=== PATIENT | male | born 1975 | race Two or more races ===

== ENCOUNTER 2020-11-11 12:44 | Emergency (ER) | payer OTHER ==
[~2020-11-11] VITALS: Ht 182.9 cm; Wt 88.5 kg
[2020-11-11] MEDS ORDERED: KETO10TA2 PO (15:31)
[2020-11-11] MEDS ORDERED: CIPRO500 MG PO (15:31)
== END 2020-11-11 16:30 | disposition home or self-care (01) ==
LOC: ER 12:44
DX: S51.851A Open bite of right forearm, initial encounter (principal); W54.0XXA Bitten by dog, initial encounter; Y93.89 Activity, other specified; Y92.89 Other specified places as the place of occurrence of the external cause; Y99.8 Other external cause status

== ENCOUNTER 2025-09-10 15:51 | Emergency (ER) | payer OTHER ==
[~2025-09-10] VITALS: Ht 182.9 cm; Wt 90.7 kg
[~2025-09-10 15:51] MED LIST: CIPRO500 MG PO; KETO10TA2 PO
[2025-09-10] MEDS ORDERED: DEXAMETHASONE SODIUM PHOSPHATE 4 MG/ML VIAL IM STA (16:49)
[2025-09-10] MEDS ORDERED: GUAIFENESIN 200 MG/10 ML BLIST.PACK PO STA (16:49)
[2025-09-10 17:22] LABS: BASO % 0.4 % (0.1-1.2); EOS # 0.04 (0.04-0.54); EOS % 0.3 % (0.7-7.0); LYMPH # 1.53 (1.18-3.74); LYMPH % 11.4 % (19.3-53.1); MEAN PLATELET VOLUME 10.40 fl (9.4-12.4); MONO # 1.02 (0.24-0.82); MONO % 7.6 % (4.7-12.5); NEUT # 10.59 (1.56-6.13); NEUT % 78.7 % (34.0-71.1); RED CELL DISTRIBUTION WIDTH 11.8 % (11.6-14.4)
[2025-09-10 17:34] LABS: COVID-19 AG NEGATIVE (NEGATIVE)
[2025-09-10] MEDS ORDERED: MEDROLPACK PO (17:59)
[2025-09-10] MEDS ORDERED: MUCINEX DM ER1 EAC1 PO (17:59)
[2025-09-10] MEDS ORDERED: ZITHROMAX500 MG PO (17:59)
[2025-09-10] MEDS ORDERED: CLINDAMYCIN HC300 MG PO (18:02)
== END 2025-09-10 18:29 | disposition home or self-care (01) ==
LOC: ER 15:51
PROVIDERS: General Practice
DX: J06.9 Acute upper respiratory infection, unspecified (principal); Z88.0 Allergy status to penicillin; Z88.8 Allergy status to other drugs, medicaments and biological substances; B34.9 Viral infection, unspecified; Z20.822 Contact with and (suspected) exposure to COVID-19